=== PATIENT | female | born 1995 | race Caucasian/White ===

== ENCOUNTER 2025-06-21 07:12 | Emergency (ER) | payer OTHER ==
[~2025-06-21] VITALS: Ht 154.9 cm; Wt 68.0 kg
[2025-06-21 07:33] VITALS: BP 145/79
[2025-06-21] MEDS ORDERED: IBUP-1957 PO (08:20)
[2025-06-21] MEDS ORDERED: HYDR-3972 PO (08:20)
[2025-06-21 08:44] LABS: *URINE HCG, QUAL NEGATIVE (NEGATIVE)
[2025-06-21 10:18] VITALS: BP 144/77; TEMP 98; O2SAT 100
== END 2025-06-21 10:19 | disposition home or self-care (01) ==
LOC: ER 07:12
DX: S16.1XXA Strain of muscle, fascia and tendon at neck level, initial encounter (principal); S93.401A Sprain of unspecified ligament of right ankle, initial encounter; S39.012A Strain of muscle, fascia and tendon of lower back, initial encounter; F17.200 Nicotine dependence, unspecified, uncomplicated; E28.2 Polycystic ovarian syndrome; Z88.1 Allergy status to other antibiotic agents; V89.2XXA Person injured in unspecified motor-vehicle accident, traffic, initial encounter; Y93.89 Activity, other specified; Y92.89 Other specified places as the place of occurrence of the external cause; Y99.9 Unspecified external cause status
CPT/HCPCS: 72100; 84703; A4606; A4663

== ENCOUNTER 2025-07-01 04:29 | Emergency (ER) | payer MEDICAID, OTHER ==
[~2025-07-01] VITALS: Ht 152.4 cm; Wt 68.0 kg
[~2025-07-01 04:29] MED LIST: HYDR-3972 PO; IBUP-1957 PO
[2025-07-01 04:32] VITALS: BP 145/91
[2025-07-01] MEDS ORDERED: MUPI22OI2 TP (05:06)
[2025-07-01] MEDS ORDERED: MUPIROCIN 2% OINT 22 GM TUBE ONE (05:08)
[2025-07-01] MEDS: MUPIROCIN 2% OINT 22 GM TUBE TP ONE (05:10)
[2025-07-01 05:11] VITALS: BP 145/91; O2SAT 99
== END 2025-07-01 05:11 | disposition home or self-care (01) ==
LOC: ER 04:37
DX: L01.00 Impetigo, unspecified (principal); R03.0 Elevated blood-pressure reading, without diagnosis of hypertension; E28.2 Polycystic ovarian syndrome; F17.200 Nicotine dependence, unspecified, uncomplicated; Z88.1 Allergy status to other antibiotic agents
CPT/HCPCS: A4606; A4663